=== PATIENT | male | born 1990 | race Caucasian/White ===

== ENCOUNTER 2018-12-23 10:47 | Emergency (ER) | payer BC ==
[2018-12-23 11:01] VITALS: BP 119/83
--- NOTE | 2018-12-23 11:28 | EDM.PDOC ---
ED HPI GENERAL MEDICAL PROBLEM - General Chief Complaint: Cardiovascular Problem Stated Complaint: BLOOD CLOT Time Seen by Provider: 12/23/18 11:10 Source of Information: Reports: Patient, Old Records ([facility] records, 2018), RN Notes Reviewed, Significant Other (Fiance) History Limitations: Reports: No Limitations - History of Present Illness INITIAL COMMENTS - FREE TEXT/NARRATIVE: The patient reports, and records faxed from the [place] walk-in clinic confirm, that the patient was seen this past 12/21/2018, for left leg pain that developed 12/17/2018. The patient denies any trauma to the left lower extremity, and denies at this time that he had been on any long road trips or airline flights. Workup in the walk-in clinic included a CBC, CMP, and a Doppler ultrasound of his left lower extremity, which demonstrated a single occluded left peroneal vein in the calf, but no other abnormalities. A coagulopathy workup was obtained, and the patient was then started on Xarelto, which he states he has been taking as prescribed. No prior history of a DVT. The patient now presents, stating that he continues to have swelling and pain to his left leg. The swelling involves the entire leg below the knee, and the pain is felt primarily to the distal posterior calf. No recent fever. In addition to Xarelto, the patient reports that he has been taking over-the- counter Tylenol, but no other medicines for any other reasons. The patient reported to the triage nurse that he felt short of breath and dizzy when he stood last night, although feels fine today. The patient does not have a PCP. He reports that he was not given follow-up information from the [facility]. Left Leg Pain Score (Numeric/FACES): 10 - Related Data Allergies Allergy/AdvReac Type Severity Reaction Status Date / Time No Known Allergies Allergy Verified 03/11/15 22:52 Home Meds: Home Meds Rivaroxaban [Xarelto] 15 mg PO BID 12/23/18 [History] traMADol [Ultram] 1 tab PO Q6H PRN #14 tablet 12/23/18 [Rx] Past Medical History HEENT History: Reports: Allergic Rhinitis Cardiovascular History: Reports: Blood Clots/VTE/DVT (left peroneal vein, dx'd ) Musculoskeletal History: Reports: Other (See Below) (Bilateral plantar fasciitis ) Endocrine/Metabolic History: Reports: Obesity/BMI 30+ Hematologic History: Reports: Anticoagulation Therapy (Xarelto) - Past Surgical History HEENT Surgical History: Reports: Myringotomy w Tube(s) (bilateral), Tonsillectomy Social & Family History - Family History Cardiac: Reports: Blood Clots/VTE/DVT - Tobacco Use Smoking Status *Q: Former Smoker Years of Tobacco use: 2 Packs/Tins Daily: 0.1 Month/Year Tobacco Last Used: Quit 2011 Second Hand Smoke Exposure: No - Caffeine Use Caffeine Use: Reports: None - Alcohol Use Alcohol Use History: Yes Alcohol Use Frequency: Socially - Recreational Drug Use Recreational Drug Use: Yes Drug Use in Last 12 Months: No Recreational Drug Type: Reports: Cocaine (last used 2010), Marijuana/Hashish ( last smoked 2010) - Living Situation & Occupation Living situation: Reports: Single, with Significant Other (Fiance), with Family (2 sons) 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 ED EXAM, GENERAL - Physical Exam Exam: See Below Exam Limited By: No Limitations General Appearance: Alert, WD/WN, No Apparent Distress Extremities: Other (1-2 + pretibial edema of the left leg, with only 1+ pretibial edema of the right leg. No other visible abnormality to the left leg, such as erythema, ecchymosis, or abrasion. Minimal, if any, tenderness to the dorsal left leg. Neurovascular status of the left lower extremity is intact.) Course - Vital Signs Last Recorded V/S: Last Vital Signs Temp 36.6 C 12/23/18 10:57 Pulse 108 H 12/23/18 10:57 Resp 18 12/23/18 10:57 BP 119/83 12/23/18 10:57 Pulse Ox 96 12/23/18 10:57 Orthostatic Blood Pressure [ 112/82 Standing] Orthostatic Blood Pressure [ 119/70 Supine] - Orders/Labs/Meds Orders: Active Orders 24 hr Category Date Time Status Orthostatic Vital Signs [RC] STAT Care 12/23/18 11:17 Active Meds: Medications Discontinued Medications Generic Name Dose Route Start Last Admin Trade Name Freq PRN Reason Stop Dose Admin Ibuprofen 600 mg 12/23/18 11:49 12/23/18 11:55 Motrin PO 12/23/18 11:50 600 mg ONETIME ONE Administration Tramadol HCl 100 mg 12/23/18 11:49 12/23/18 11:54 Ultram PO 12/23/18 11:50 100 mg ONETIME ONE Administration - Re-Assessments/Exams Free Text/Narrative Re-Assessment/Exam: 12/23/18 11:25 The patient is not orthostatic. 12/23/18 11:51 The patient appears to be having an inordinate amount of discomfort in his posterior left leg, related to a DVT that was diagnosed on 12/21/2018. I don't see any sign of an infection, however. He does not have a fever, and did not have an elevated WBC count or altered electrolytes on his CBC and CMP obtained . For today's purposes, I will treat the patient with tramadol and ibuprofen. I will give him a prescription for tramadol. The combination of ibuprofen and Xarelto is not recommended long-term, but a few days, until his pain subsides, should be okay. The patient may ambulate, but I am recommending that he elevate his left lower extremity and apply a heating pad when he is not ambulating. I will write a note for his work. A coagulopathy workup was ordered on 12/21/2018, however, the patient does not currently have an appointment to follow-up. I believe is important that he does so, and will recommend that he follow up with a provider at the [facility]. I do not see an indication to evaluate for a PE today, because: 1. [id number] DVTs are unlikely to embolize, and 2. Even if we discover that the patient has a PE, he is already on Xarelto, therefore his management would not change. Departure - Departure Time of Disposition: 11:54 Disposition: Home, Self-Care 01 Condition: Good Clinical Impression: Left leg pain, Deep venous thrombosis (DVT) of left peroneal vein - Discharge Information *PRESCRIPTION DRUG MONITORING PROGRAM REVIEWED*: Not Applicable *COPY OF PRESCRIPTION DRUG MONITORING REPORT IN PATIENT STEVO: Not Applicable Prescriptions: traMADol [Ultram] 1 tab PO Q6H PRN #14 tablet PRN Reason: Pain (Severe 7-10) Instructions: Deep Vein Thrombosis Referrals: PCP,None [Primary Care Provider] - Forms: ED Department Discharge, ED Return to Work/School Form Additional Instructions: You were seen in the emergency room for continued left leg pain, associated with a DVT. On examination, there is mild swelling, as would be expected with a DVT, but no other abnormalities. You do not have a fever, and you did not have an elevated WBC count or abnormal electrolytes on your blood work from 12/21/2018. The cause of your pain is unclear. You may walk using your left leg, but you should elevate your left leg and use a heating pad as much as possible when not walking. Continue to take the blood thinner Xarelto as previously prescribed. The combination of Xarelto and ibuprofen is not good for the long-term, but should be safe for a few days. We recommend that you take [id number] ibuprofen, 3 tablets (600 mg) every 8 hours, with food, as needed for discomfort. You have been started on the opioid pain reliever tramadol. A prescription for tramadol has been given to you. You may take one tablet up to every 6 hours as needed for pain not relieved by ibuprofen. Do not drive or operate heavy machinery for 10 hours after taking tramadol. Tramadol may cause constipation, so consider taking a stool softener. A note to excuse you from work through 12/26/2018, has been provided. A coagulopathy workup was ordered when you were seen in the walk-in clinic on 12/21/2018. You need to follow-up in this regard. Please make arrangements to follow-up with one of the providers at the [facility] this week. If any other problems, please do not hesitate to return to the ER. - My Orders Last 24 Hours: My Active Orders 12/23/18 11:17 Orthostatic Vital Signs [RC] STAT - Assessment/Plan Last 24 Hours: My Active Orders 12/23/18 11:17 Orthostatic Vital Signs [RC] STAT
[2018-12-23] MEDS ORDERED: Ibuprofen 600 MG Tab PO ONE (11:49)
[2018-12-23] MEDS ORDERED: traMADol 50 MG Tab PO ONE (11:49)
== END 2018-12-23 12:10 | disposition home or self-care (01) ==
LOC: JD.ED 10:47
DX: I82.4Z2 Acute embolism and thrombosis of unspecified deep veins of left distal lower extremity (principal); Z79.01 Long term (current) use of anticoagulants; Z87.891 Personal history of nicotine dependence
CPT/HCPCS: 99283; A9270

== ENCOUNTER 2020-10-17 19:15 | Emergency (ER) | payer BC, OTHER ==
[2020-10-17 19:23] VITALS: BP 130/84; PULSE 66
--- NOTE | 2020-10-17 19:39 | EDM.PDOC ---
ED HPI GENERAL MEDICAL PROBLEM - General Chief Complaint: Upper Extremity Injury/Pain Stated Complaint: LEFT FOREARM PAIN Time Seen by Provider: 10/17/20 19:22 Source of Information: Reports: Patient History Limitations: Reports: No Limitations - History of Present Illness INITIAL COMMENTS - FREE TEXT/NARRATIVE: This is a 30-year-old male. Today he was cleaning out the garage to get ready for the winter and he was having to pepper picker some 2 by fours and 4 x 4's and he noted as he was picking up 1 of these pieces of wood he had sudden sharp pain in his left wrist that seem to go into his forearm. It did not go up into his shoulder or into his neck. As of this sharp pain especially with movement he comes to the ER for evaluation. The patient states he has not fallen down and there is no other mechanism of injury. He denies any other acute symptoms. He has had no recent cold or cough no nausea vomiting or diarrhea. Left Arm Pain Score (Numeric/FACES): 4 - Related Data Allergies Allergy/AdvReac Type Severity Reaction Status Date / Time Penicillins Allergy Cannot Verified 10/17/20 19:23 Remember Home Meds: Home Meds Cetirizine [ZyrTEC] 10 mg PO DAILY 10/17/20 [History] Past Medical History HEENT History: Reports: Allergic Rhinitis Cardiovascular History: Reports: Blood Clots/VTE/DVT Musculoskeletal History: Reports: Other (See Below) Endocrine/Metabolic History: Reports: Obesity/BMI 30+ Hematologic History: Reports: Anticoagulation Therapy - Past Surgical History HEENT Surgical History: Reports: Myringotomy w Tube(s), Tonsillectomy Social & Family History - Family History Cardiac: Reports: Blood Clots/VTE/DVT - Tobacco Use Tobacco Use Status *Q: Former Tobacco User Used Tobacco, but Quit: Yes Month/Year Tobacco Last Used: 7 years ago - Caffeine Use Caffeine Use: Reports: None - Recreational Drug Use Recreational Drug Use: No - Living Situation & Occupation Living situation: Reports: Single, with Significant Other (Fiance), with Family (2 sons) 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) Review of Systems - Review of Systems Review Of Systems: See Below Constitutional: Denies: Chills, Fever Eyes: Reports: No Symptoms Ears: Reports: No Symptoms Nose: Reports: No Symptoms Mouth/Throat: Reports: No Symptoms Respiratory: Denies: Shortness of Breath, Cough Cardiovascular: Reports: No Symptoms GI/Abdominal: Denies: Abdominal Pain, Nausea, Vomiting Genitourinary: Reports: No Symptoms Musculoskeletal: Reports: Other (As per HPI) Skin: Reports: No Symptoms Neurological: Reports: No Symptoms ED EXAM, GENERAL - Physical Exam Exam: See Below Exam Limited By: No Limitations General Appearance: Alert, WD/WN, No Apparent Distress Eye Exam: Bilateral Eye: Normal Inspection Ears: Normal External Exam Throat/Mouth: Normal Voice, No Airway Compromise Head: Normocephalic Neck: Supple Respiratory/Chest: No Respiratory Distress, Lungs Clear, Normal Breath Sounds Cardiovascular: Regular Rate, Rhythm, No Murmur Back Exam: Full Range of Motion Extremities: Other (Examination of his left wrist reveals tenderness in the snuffbox but no swelling, with flexion and extension of the wrist he has pain in that area and also pain in the extensor muscle group when he stretches it and tries to use it with flexion and extension of his wrist. Neurovascular is prema ssly intact in all 5 digits. He is able to make a fist and extend his fingers with no difficulty. He has no significant elbow shoulder or neck pain noted. The right upper extremity is atraumatic.) Neurological: Alert, Oriented Psychiatric: Normal Affect, Normal Mood Skin Exam: Warm, Dry Course - Vital Signs Last Recorded V/S: Last Vital Signs Temp 97.6 F 10/17/20 19:21 Pulse 66 10/17/20 19:21 Resp 16 10/17/20 19:21 BP 130/84 10/17/20 19:21 Pulse Ox 99 10/17/20 19:21 - Orders/Labs/Meds Orders: Active Orders 24 hr Category Date Time Status Wrist Comp Min 3V Lt [CR] Stat Exams 10/17/20 19:35 Taken DME for Discharge [COMM] Stat Oth 10/17/20 19:55 Ordered - Radiology Interpretation Free Text/Narrative:: X-ray of the left wrist did not show any acute bone abnormalities or fractures. - Re-Assessments/Exams Free Text/Narrative Re-Assessment/Exam: 10/17/20 19:59 Spoke to the patient regarding the x-ray results and they are negative for any bone problems. He does have a left wrist sprain and a mild left forearm sprain as well. We will place him in a splint that he is to wear when he is doing heavy work to remind himself not to hurt his wrist but he does not need to wear it at nighttime when he sleeping or if he is just relaxing and doing nothing heavy. Departure - Departure Time of Disposition: 19:59 Disposition: Home, Self-Care 01 Condition: Good Clinical Impression: Left wrist sprain Qualifiers: Encounter type: initial encounter Qualified Code(s): S63.502A - Unspecified sprain of left wrist, initial encounter Sprain of left forearm Qualifiers: Encounter type: initial encounter Qualified Code(s): S63.502A - Unspecified sprain of left wrist, initial encounter - Discharge Information *PRESCRIPTION DRUG MONITORING PROGRAM REVIEWED*: Not Applicable *COPY OF PRESCRIPTION DRUG MONITORING REPORT IN PATIENT STEVO: Not Applicable Instructions: Wrist Sprain, Adult Referrals: Davin Chirinos Jr, MD [Primary Care Provider] - Forms: ED Department Discharge Additional Instructions: Wear the left wrist splint when you are doing any sort of heavy work to remind yourself not to keep injuring this wrist, you may take the splint off if you are resting or if you are sleeping. You may use ice to the area on and off for the next 48 hours to help with the soreness in the wrist and the forearm, take Tylenol or ibuprofen as needed for the soreness, follow-up with your family doctor end of the week for recheck or return to the ER if needed Sepsis Event Note (ED) - Evaluation Sepsis Screening Result: No Definite Risk - Focused Exam Vital Signs: Vital Signs Temp Pulse Resp BP Pulse Ox 10/17/20 19:21 97.6 F 66 16 130/84 99 - My Orders Last 24 Hours: My Active Orders 10/17/20 19:35 Wrist Comp Min 3V Lt [CR] Stat 10/17/20 19:55 DME for Discharge [COMM] Stat - Assessment/Plan Last 24 Hours: My Active Orders 10/17/20 19:35 Wrist Comp Min 3V Lt [CR] Stat 10/17/20 19:55 DME for Discharge [COMM] Stat
--- NOTE | 2020-10-18 07:33 | CR ---
Left wrist: 3 views of the left wrist were obtained. Comparison: No prior wrist study is available. Findings: Osseous: Joint spaces are maintained. No acute fracture, dislocation or other bony abnormality is seen. Soft tissues: No abnormal soft tissue calcifications are seen. Impression: 1. Nothing acute is seen on 3 view left wrist exam. Diagnostic code #1 I agree with preliminary report from [facility], finalized on 10/17/20, 9:02 PM Central Daylight Time
== END 2020-10-17 20:05 | disposition home or self-care (01) ==
LOC: JD.ED 19:15
DX: S63.502A Unspecified sprain of left wrist, initial encounter (principal); S59.812A Other specified injuries left forearm, initial encounter; E66.9 Obesity, unspecified; Z68.35 Body mass index [BMI] 35.0-35.9, adult; Z87.891 Personal history of nicotine dependence; Z88.0 Allergy status to penicillin; Z79.01 Long term (current) use of anticoagulants; X58.XXXA Exposure to other specified factors, initial encounter; Y92.59 Other trade areas as the place of occurrence of the external cause
CPT/HCPCS: 73110-26-LT; 73110-LT; 99282; 99283-25

== ENCOUNTER 2021-05-17 21:33 | Emergency (ER) | payer OTHER ==
[2021-05-17 21:49] VITALS: BP 128/86; PULSE 80
--- NOTE | 2021-05-17 22:21 | EDM.PDOC ---
<Almita Ramirez M - Last Filed: 05/17/21 22:55> ED HPI GENERAL MEDICAL PROBLEM - General Chief Complaint: Lower Extremity Injury/Pain Stated Complaint: KNEE PAIN Time Seen by Provider: 05/17/21 21:51 Source of Information: Reports: Patient History Limitations: Reports: No Limitations - History of Present Illness INITIAL COMMENTS - FREE TEXT/NARRATIVE: 31-year-old male presents the emergency department with complaints of left knee pain. He states that he was sitting around watching TV when he developed severe left knee pain. He also noted increased heat and swelling to the left knee. This occurred around 2 hours ago. States that the pain is primarily along the left side of the kneecap radiating around the lateral side to the top of the kneecap. He denies any recent fever or chills. He denies any recent injury or overuse. Of note, patient states that he does have a history of blood clot in the past and he was treated for this however it he currently does not take any anticoagulants. Patient states that his mother has a clotting disorder but he has never been tested for any. He states he took ibuprofen approximately 2 hours ago when the pain started however this has not helped. Treatments ENDBANDER: Reports: Other (see below) Other Treatments ENDBANDER: none Left Knee Pain Score (Numeric/FACES): 7 - Related Data Allergies Allergy/AdvReac Type Severity Reaction Status Date / Time Penicillins Allergy Severe Cannot Verified 05/17/21 21:44 Remember Home Meds: Home Meds . [No Known Home Meds] 05/17/21 [History] Past Medical History HEENT History: Reports: Allergic Rhinitis Cardiovascular History: Reports: Blood Clots/VTE/DVT Musculoskeletal History: Reports: Other (See Below) Endocrine/Metabolic History: Reports: Obesity/BMI 30+ Hematologic History: Reports: Anticoagulation Therapy - Past Surgical History HEENT Surgical History: Reports: Myringotomy w Tube(s), Tonsillectomy Social & Family History - Family History Cardiac: Reports: Blood Clots/VTE/DVT - Tobacco Use Tobacco Use Status *Q: Current Every Day Tobacco User Years of Tobacco use: 9 Packs/Tins Daily: 1 - Caffeine Use Caffeine Use: Reports: Soda - Recreational Drug Use Recreational Drug Use: No - Living Situation & Occupation Living situation: Reports: Single, with Significant Other (Fiance), with Family (2 sons) 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 ED EXAM, GENERAL - Physical Exam Exam: See Below Exam Limited By: No Limitations General Appearance: Alert, WD/WN, No Apparent Distress Ears: Normal External Exam, Hearing Grossly Normal Nose: Normal Inspection Throat/Mouth: Normal Inspection, Normal Lips, Normal Voice, No Airway Compromise Head: Atraumatic, Normocephalic Neck: Normal Inspection, Supple Respiratory/Chest: No Respiratory Distress, No Accessory Muscle Use Cardiovascular: Normal Peripheral Pulses, Regular Rate, Rhythm, No Murmur GI/Abdominal: No Distention (Male) Exam: Deferred Rectal (Males) Exam: Deferred Back Exam: Normal Inspection, Full Range of Motion Extremities: Normal Inspection, Normal Range of Motion, Normal Capillary Refill. No: Non-Tender (Tenderness noted to left knee or along the left lateral border of patella) Neurological: Alert, Oriented, Normal Cognition Psychiatric: Normal Affect, Normal Mood Skin Exam: Dry, Intact, Normal Color, No Rash. No: Warm (Left knee is hot to touch) Lymphatic: No Adenopathy Course - Vital Signs Text/Narrative:: Patient presents with abrupt onset left knee pain, heat and swelling. Upon assessment, I do not see any swelling compared to his right knee. His left knee however is hot to touch compared to the right knee. There is no redness noted anywhere on the left knee. With palpation, there is no definite effusion noted. Patient does have pain when palpated along the left lateral lower edge of the kneecap. Patient is worried he may have another blood clot as he states this feels identical to his previous diagnosis of having a blood clot. He states that at that time it was diagnosed on the anterior portion of his lower leg. He denies any past medical history. I have ordered an ultrasound of the left leg. I have also ordered labs to include CBC, CMP, CRP, ESR, uric acid and rheumatoid factor. - Re-Assessments/Exams Free Text/Narrative Re-Assessment/Exam: 05/17/21 22:55 I have turned over care to Dr. Giraldo Departure - Departure Disposition: Home, Self-Care 01 Clinical Impression: Patellar bursitis of left knee - Discharge Information Instructions: Prepatellar Bursitis, Bursitis Referrals: PCP,None [Primary Care Provider] - Forms: ED Department Discharge Additional Instructions: [place] as needed. Ibuprofen with meals. Follow-up with PCP or Ortho if not improving. Return to ER if worse. Retches as needed. Sepsis Event Note (ED) - Evaluation Sepsis Screening Result: No Definite Risk <Jenelle Giraldo - Last Filed: 05/17/21 23:58> Course - Vital Signs Text/Narrative:: Patient's ultrasound of his left lower extremity shows no DVT. His arthritic panel is negative. With my examination of the patient I believe he has some bursitis. I am recommending he take anti-inflammatory such as ibuprofen I will give him a prescription for some [place] and he can go back to using crutches as long as he is having pain with walking. If his symptoms were to worsen he may return to the ER at any time and most likely then we would attempt to tap the knee. He may follow-up with his PCP this week for recheck. Last Recorded V/S: Last Vital Signs Temp 98.7 F 05/17/21 21:47 Pulse 80 05/17/21 21:47 Resp 20 05/17/21 21:47 BP 128/86 05/17/21 21:47 Pulse Ox 95 05/17/21 21:47 - Orders/Labs/Meds Orders: Active Orders 24 hr Category Date Time Status VL Duplex Lwr Ext Veins Ltd Lt [US] Stat Exams 05/17/21 21:59 Taken Labs: Laboratory Tests 05/17/21 05/17/21 05/17/21 Range/Units 22:16 22:16 22:16 WBC 10.33 H (4.23-9.07) K/mm3 RBC 4.99 (4.63-6.08) M/mm3 Hgb 14.4 (13.7-17.5) gm/dl Hct 42.8 (40.1-51.0) % MCV 85.8 (79.0-92.2) fl MCH 28.9 (25.7-32.2) pg MCHC 33.6 (32.2-35.5) g/dl RDW Std Deviation 45.9 H (35.1-43.9) fL Plt Count 306 (163-337) K/mm3 MPV 10.1 (9.4-12.3) fl ESR 2 (0-15) mm/hr Sodium 143 (136-145) mEq/L Potassium 4.2 (3.5-5.1) mEq/L Chloride 109 H (98-107) mEq/L Carbon Dioxide 22 (21-32) mEq/L Anion Gap 16.2 H (5-15) BUN 15 (7-18) mg/dL Creatinine 1.1 (0.7-1.3) mg/dL Est Cr Clr Drug Dosing 108.76 mL/min Estimated GFR (MDRD) > 60 (>60) mL/min BUN/Creatinine Ratio 13.6 L (14-18) Glucose 118 H (70-99) mg/dL Uric Acid 6.6 (3.5-7.2) mg/dL Calcium 8.3 L (8.5-10.1) mg/dL Total Bilirubin 0.2 (0.2-1.0) mg/dL AST 15 (15-37) U/L ALT 31 (16-63) U/L Alkaline Phosphatase 43 L (46-116) U/L C-Reactive Protein 0.4 (<1.0) mg/dL Total Protein 6.6 (6.4-8.2) g/dl Albumin 3.5 (3.4-5.0) g/dl Globulin 3.1 gm/dL Albumin/Globulin Ratio 1.1 (1-2) Rheumatoid Factor Scrn (NEGATIVE) 05/17/21 Range/Units 22:16 WBC (4.23-9.07) K/mm3 RBC (4.63-6.08) M/mm3 Hgb (13.7-17.5) gm/dl Hct (40.1-51.0) % MCV (79.0-92.2) fl MCH (25.7-32.2) pg MCHC (32.2-35.5) g/dl RDW Std Deviation (35.1-43.9) fL Plt Count (163-337) K/mm3 MPV (9.4-12.3) fl ESR (0-15) mm/hr Sodium (136-145) mEq/L Potassium (3.5-5.1) mEq/L Chloride (98-107) mEq/L Carbon Dioxide (21-32) mEq/L Anion Gap (5-15) BUN (7-18) mg/dL Creatinine (0.7-1.3) mg/dL Est Cr Clr Drug Dosing mL/min Estimated GFR (MDRD) (>60) mL/min BUN/Creatinine Ratio (14-18) Glucose (70-99) mg/dL Uric Acid (3.5-7.2) mg/dL Calcium (8.5-10.1) mg/dL Total Bilirubin (0.2-1.0) mg/dL AST (15-37) U/L ALT (16-63) U/L Alkaline Phosphatase (46-116) U/L C-Reactive Protein (<1.0) mg/dL Total Protein (6.4-8.2) g/dl Albumin (3.4-5.0) g/dl Globulin gm/dL Albumin/Globulin Ratio (1-2) Rheumatoid Factor Scrn Negative (NEGATIVE) Departure - Departure Time of Disposition: 23:57 Condition: Good Sepsis Event Note (ED) - Focused Exam Vital Signs: Vital Signs Temp Pulse Resp BP Pulse Ox 05/17/21 21:47 98.7 F 80 20 128/86 95
--- NOTE | 2021-05-18 09:07 | US ---
Left lower extremity deep venous ultrasound: Duplex and color Doppler evaluation was obtained of the left common femoral, proximal greater saphenous, superficial femoral, popliteal, posterior tibial and peroneal veins. Right common femoral vein was also evaluated. Comparison: No prior venous imaging is available. Findings: Visualized veins show normal phasic flow, augmentation and compression. Lymph nodes are seen within the left inguinal region which are felt to be within normal limits. Impression: 1. No findings of deep venous thrombosis are seen within the left lower extremity or within the right common femoral vein. Diagnostic code #1 I agree with preliminary report from [facility], finalized on 05/18/21, 12:05 AM CDT, code 1
== END 2021-05-18 00:10 | disposition home or self-care (01) ==
LOC: JD.ED 21:33
DX: M70.42 Prepatellar bursitis, left knee (principal); E66.9 Obesity, unspecified; Z68.34 Body mass index [BMI] 34.0-34.9, adult; Z72.0 Tobacco use; Z88.0 Allergy status to penicillin; Z79.01 Long term (current) use of anticoagulants
CPT/HCPCS: 36415; 80053; 84550; 85027; 85652; 86140; 86430; 93971-26-LT; 93971-LT; 99283; 99284-25

== ENCOUNTER 2021-05-26 19:20 | Emergency (ER) | payer OTHER ==
[2021-05-26 19:29] VITALS: BP 132/82; PULSE 83
--- NOTE | 2021-05-26 20:18 | EDM.PDOC ---
ED HPI GENERAL MEDICAL PROBLEM - General Chief Complaint: Skin Complaint Stated Complaint: PAIN LEFT KNEE Time Seen by Provider: 05/26/21 19:34 Source of Information: Reports: Patient, Significant Other (Fianc) History Limitations: Reports: No Limitations - History of Present Illness INITIAL COMMENTS - FREE TEXT/NARRATIVE: Mr. Conti is a very pleasant 31-year-old gentleman who now presents the ED with a painful, erythematous, and swollen left knee. He states that he initially developed sudden-onset pain to the lateral aspect of the knee without erythema on 05/17/2021. He was seen in this ED that same day, where a work-up included a CBC, CMP, CRP, ESR, uric acid level, rheumatoid factor, and a Doppler ultrasound of the left lower extremity. His WBC count was 10.33, his CRP 0.4, his ESR 2, his uric acid level 6, with an unremarkable CMP and negative rheumatoid factor. His Doppler ultrasound was negative for a DVT. He was diagnosed with bursitis and discharged home with a prescription for Zamora, to be taken along with OTC ibuprofen, and crutches. The patient states that he followed up at the walk-in clinic on 05/19/2021. A CBC found his WBC up to be 12.5. He was prescribed a 7-day course of Keflex, that he states he took as prescribed. Since then, the patient states that he has been icing his left knee and elevating it, although he acknowledges that he returned to work recently. He returned to the walk-in clinic today due to erythema that had extended from his knee to his thigh. He states that no tests were done. He was sent here in order to undergo arthrocentesis of the left knee and start IV antibiotics. The patient denies suffering any injury to his knee. He has not had a fever throughout this course. No similar symptoms prior to 05/19/2021. Here in the ED tonight, the patient is found to be hemodynamically stable, afebrile, saturating 98% on room air. He appears to be comfortable, in no acute distress. Prior to 05/19/2021, the patient denies having a recent fever, chills, sore throat, ear pain, nasal or sinus congestion, cough, dyspnea, chest pain, palpitations, nausea, vomiting, constipation, diarrhea, abdominal pain, urinary symptoms, recent weight gain or weight loss, recent bloody bowel movements or black bowel movements, recent joint aches, headaches, or rashes. The patient does not have a PCP. Left Knee Pain Score (Numeric/FACES): 6 - Related Data Allergies Allergy/AdvReac Type Severity Reaction Status Date / Time Penicillins Allergy Severe Rash Verified 05/26/21 19:29 Home Meds: Home Meds Albuterol Sulfate [Albuterol Sulfate HFA] 2 inh INH Q4H PRN 05/26/21 [History] Aspirin/Acetaminophen/Caffeine [Excedrin Migraine Caplet] 1 tab PO DAILY PRN 05/26/21 [History] Cetirizine [ZyrTEC] 10 mg PO DAILY 05/26/21 [History] Ibuprofen 200 mg PO Q4H PRN 05/26/21 [History] cephALEXin [Keflex] 1 cap PO Q6H #55 cap 05/26/21 [Rx] Past Medical History HEENT History: Reports: Allergic Rhinitis Cardiovascular History: Reports: Blood Clots/VTE/DVT (LLE DVT 12/21/2018) Endocrine/Metabolic History: Reports: Obesity/BMI 30+ - Past Surgical History HEENT Surgical History: Reports: Myringotomy w Tube(s) (bilateral), Tonsillectomy Social & Family History - Tobacco Use Tobacco Use Status *Q: Former Tobacco User Years of Tobacco use: 2 Packs/Tins Daily: 0.1 Month/Year Tobacco Last Used: Quit 2011 - Caffeine Use Caffeine Use: Reports: Soda - Alcohol Use Alcohol Use History: Yes Alcohol Use Frequency: Socially - Recreational Drug Use Recreational Drug Use: Yes Drug Use in Last 12 Months: No Recreational Drug Type: Reports: Cocaine (last 2010), Marijuana/Hashish (last 2010) - Living Situation & Occupation Living situation: Reports: Single, with Significant Other (Fiance), with Family (2 sons) 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 ED EXAM, SKIN/RASH Exam: See Below Exam Limited By: No Limitations General Appearance: Alert, WD/WN, No Apparent Distress Extremities: Other (The patient's left knee is moderately swollen, when compared to the right, however, it is not clear that there is an effusion present. There is erythema, primarily to the anterior and lateral aspect of the right knee, although there is also a patch to the distal medial thigh. The erythematous area) Course - Vital Signs Last Recorded V/S: Last Vital Signs Temp 36.3 C 05/26/21 19:26 Pulse 83 05/26/21 19:26 Resp 16 05/26/21 19:26 BP 132/82 05/26/21 19:26 Pulse Ox 98 05/26/21 19:26 - Orders/Labs/Meds Labs: Laboratory Tests 05/26/21 05/26/21 05/26/21 Range/Units 20:10 20:10 21:25 WBC 8.22 (4.23-9.07) K/mm3 RBC 4.84 (4.63-6.08) M/mm3 Hgb 13.7 (13.7-17.5) gm/dl Hct 41.2 (40.1-51.0) % MCV 85.1 (79.0-92.2) fl MCH 28.3 (25.7-32.2) pg MCHC 33.3 (32.2-35.5) g/dl RDW Std Deviation 43.7 (35.1-43.9) fL Plt Count 383 H D (163-337) K/mm3 MPV 9.5 (9.4-12.3) fl Neutrophils % (Manual) 62 H (40-60) % Band Neutrophils % 0 (0-10) % Lymphocytes % (Manual) 26 (20-40) % Atypical Lymphs % 0 % Monocytes % (Manual) 9 (2-10) % Eosinophils % (Manual) 3 (0.8-7.0) % Basophils % (Manual) 0 L (0.2-1.2) Platelet Estimate Adequate RBC Morph Comment Normal C-Reactive Protein 3.9 H* (<1.0) mg/dL MRSA (PCR) Negative Meds: Medications Discontinued Medications Generic Name Dose Route Start Last Admin Trade Name Freq PRN Reason Stop Dose Admin Bupivacaine HCl 10 ml 05/26/21 20:27 05/26/21 20:51 Bupivacaine 0.5% 10 Ml Sdv INJECT 05/26/21 20:28 10 ml ONETIME ONE Administration Cephalexin 500 mg 05/26/21 23:37 05/26/21 23:51 Cephalexin 500 Mg Cap PO 05/26/21 23:38 500 mg ONETIME STA Administration Lidocaine/Epinephrine 20 ml 05/26/21 20:27 05/26/21 20:54 Lidocaine 1% With Epinephrine 1:100,000 20 Ml Mdv INJECT 05/26/21 20:28 Not Given ONETIME ONE Lidocaine/Epinephrine Confirm 05/26/21 20:42 05/26/21 20:50 Lidocaine 1% With Epinephrine 1:100,000 10 Ml Mdv Administered 05/26/21 20:43 10 ml Dose Administration 20 ml .ROUTE .[facility] ONE - Re-Assessments/Exams Free Text/Narrative Re-Assessment/Exam: 05/26/21 20:12 As above, the patient developed pain to the lateral aspect of his left knee on 05/17/2021, a workup in the ED at that time was unremarkable, he was diagnosed with bursitis, discharged home with a prescription for Zamora, along with [id number] ibuprofen and crutches. He was seen at the walk-in clinic on 05/19/2021, his WBC count was noted to be slightly higher than on 05/17/2021. He was prescribed a 7-day course of Keflex, which he took, along with icing and elevating his left knee. He returned to the [facility] today, and was sent here for left knee aspiration and IV antibiotics. At no time if the patient had a fever or other systemic symptoms. On examination, the erythematous areas, found primarily to the anterior and lateral aspect of his knee, are warm to touch. He is able to flex the knee to about 90 degrees, after which it is too painful. I have ordered a CBC and CMP. I discussed the case with Dr. Thornton, who is not on- call, but agreed to discuss the case with me anyway. He recommended that I aspirate the patient's left knee, after which he can be started on oral Keflex and follow-up in 2 weeks. 05/26/21 20:58 The patient's CBC is unremarkable. His CRP is elevated at 3.9. The patient's left knee was sterilized using Betadine, after which sterile drapes were placed. Local anesthesia of a 50-50 admixture of lidocaine 1% with epinephrine and bupivacaine 0.5% without epinephrine was injected inferomedial to the patella. An 18-gauge needle was then inserted into the joint, however, no fluid was recovered with aspiration. The needle was removed, and a Band-Aid placed over the injection site. The patient tolerated the procedure well. Case again discussed with Dr. Thornton, who recommended that we continue with Keflex, as above. In order to make sure that the patient is not colonized with MRSA, I have ordered an MRSA screen by PCR. 05/26/21 23:36 The patient's MRSA screen by PCR has returned negative. I will therefore start him on oral Keflex, and discharge him home with a prescription to complete a 2- week course. I will have him follow-up with Dr. Thornton at the next available appointment. Departure - Departure Time of Disposition: 23:39 Disposition: Home, Self-Care 01 Condition: Good Clinical Impression: Bacterial skin infection of leg - Discharge Information *PRESCRIPTION DRUG MONITORING PROGRAM REVIEWED*: Not Applicable *COPY OF PRESCRIPTION DRUG MONITORING REPORT IN PATIENT STEVO: Not Applicable Prescriptions: cephALEXin [Keflex] 1 cap PO Q6H #55 cap Instructions: Cellulitis, Adult Referrals: Jules Thornton MD [Physician] - Forms: ED Department Discharge Additional Instructions: You were seen in the emergency room for persistent redness, swelling, and pain to your left knee. Work-up in the ER included some blood tests and an MRSA screen by PCR. Your white blood cell count was not elevated, and your MRSA screen was negative. Your case was discussed with the Orthopedic Surgeon Dr. Jules Thornton, who recommended that we attempt to aspirate your left knee. Your aspiration yielded no joint fluid. Based on your history, physical exam, ER tests, and knee aspiration, you are most likely suffering from a skin infection over the knee. You have been started on the antibiotic Keflex, and a prescription for Keflex has been sent to the [facility] located in the [facility] [employer] store. Take 1 tablet of Keflex every 6 hours, as prescribed. Finish the entire prescription unless told otherwise by Dr. Thornton. Please contact the office of Dr. Thornton in order to make an appointment to see him as soon as possible. If any other problems, please do not hesitate to return to the ER. Sepsis Event Note (ED) - Evaluation Sepsis Screening Result: No Definite Risk - Focused Exam Vital Signs: Vital Signs Temp Pulse Resp BP Pulse Ox 05/26/21 19:26 36.3 C 83 16 132/82 98 ED JOINT ASPIRATION PROCEDURE - Joint Apsiration/Arthrocentesis Site: Left knee Skin prep: Providone-Iodine (Betadine) Local anesthesia: Lidocaine: 1% with EPI (50:50 admixture) Local Anesthesia - Bupivicaine (Marcaine): 0.5% Plain (50:50 admixture) Local Anesthetic Volume: 3cc Aspiration needle size: 18g Aspirate appearance: other (No fluid recovered) Dressing: adhesive dressing (Band-Aid) Complications: No
[2021-05-26] MEDS ORDERED: Lidocaine 1% with EPINEPHrine 1:100,000 20 ML MDV INJECT ONE (20:27)
[2021-05-26] MEDS ORDERED: Bupivacaine 0.5% 10 ML SDV INJECT ONE (20:27)
[2021-05-26] MEDS ORDERED: Lidocaine 1% with EPINEPHrine 1:100,000 10 ML MDV ONE (20:42)
[2021-05-26] MEDS ORDERED: Cephalexin 500 MG Cap PO STA ×2 (21:01→23:37)
== END 2021-05-26 23:52 | disposition home or self-care (01) ==
LOC: JD.ED 19:20
DX: L08.9 Local infection of the skin and subcutaneous tissue, unspecified (principal); B96.89 Other specified bacterial agents as the cause of diseases classified elsewhere; Z88.0 Allergy status to penicillin; Z79.82 Long term (current) use of aspirin; Z87.891 Personal history of nicotine dependence
CPT/HCPCS: 20610; 36415; 85007; 85027; 86140; 87641; 99283; A9270; J3490

== ENCOUNTER 2025-09-27 22:14 | Emergency (ER) | payer BC ==
[2025-09-27 22:44] LABS: BASOPHILS ABSOLUTE AUTO 0.0 K/mm3 (0.0-0.2); BASOPHILS PERCENT AUTO 0.2 % (0.0-1.0); EOSINOPHILS ABSOLUTE AUTO 0.2 K/mm3 (0.0-0.4); EOSINOPHILS PERCENT AUTO 2.9 % (0.0-6.0); IMMATURE GRAN ABSOLUTE AUTO 0.02 K/mm3 (0.00-0.05); IMMATURE GRAN PERCENT AUTO 0.3 % (0.0-0.4); LYMPHOCYTES ABSOLUTE AUTO 1.9 K/mm3 (1.0-4.8); LYMPHOCYTES PERCENT AUTO 29.8 % (24.0-44.0); MEAN PLATELET VOLUME 10.1 fl (9.4-12.4); MONOCYTES ABSOLUTE AUTO 0.6 K/mm3 (0.0-0.8); MONOCYTES PERCENT AUTO 9.4 % (0.0-8.0); NEUTROPHILS ABSOLUTE AUTO 3.7 K/mm3 (1.8-7.7); NEUTROPHILS PERCENT AUTO 57.4 % (41.0-71.0); NRBC ABSOLUTE 0.00 (0.00-0.02); NRBC PERCENT 0.0 % (0.0-0.2); PLATELET COUNT,PLT 317 K/mm3 (150-400); RED BLOOD CELL COUNT 5.33 M/mm3 (4.52-5.90); WHITE BLOOD CELL COUNT,WBC 6.47 K/mm3 (3.9-11.3)
[2025-09-27] MEDS: Atropine/Diphenoxylate 0.025-2.5 MG Tab PO ONE (22:44)
[2025-09-27 23:06] LABS: A/G RATIO 1.0 (1-2); ALANINE AMINOTRANSFERASE,ALT 29.0 U/L (16-63); ASPARTATE AMNIOTRANSFERASE,AST 18.0 U/L (15-37); BILIRUBIN TOTAL 0.5 mg/dL (0.2-1.0); BLOOD UREA NITROGEN,BUN 16.0 mg/dL (7-18); CARBON DIOXIDE,CO2 27.0 mEq/L (21-32); CHLORIDE,CL 105.0 mEq/L (98-107); CREATINE KINASE,CK 105.0 U/L (39-308); CREATININE 0.9 mg/dL (0.7-1.3); EST CRCL DRUG DOSING (CG) 128.14 mL/min; ESTIMATED GFR 116.0 mL/min (>60); GLUCOSE RANDOM 88.0 mg/dL (70-99); POTASSIUM,K 3.4 mEq/L (3.5-5.1); PROTEIN TOTAL,TP 7.1 g/dl (6.4-8.2); SODIUM,NA 141.0 mEq/L (136-145)
[2025-09-27 23:18] LABS: ETHANOL BLOOD MEDICAL 0.0 gm% (0.00)
[2025-09-27 23:29] LABS: BUPRENORPHINE SCREEN,URINE NEGATIVE (CUTOFF=10); METHADONE SCREEN, URINE NEGATIVE (CUT0FF=200); METHAMPHETAMINES SCREEN, URINE NEGATIVE (CUTOFF=500); OXYCODONE SCREEN,URINE NEGATIVE (CUT0FF=100); THC SCREEN,URINE 20 NG/ML NEGATIVE (CUTOFF=50)
[2025-09-27 23:32] LABS: AMPHETAMINES SCREEN, URINE PRESUMPTIVE POSITIVE (CUTOFF=500)
[2025-09-27] MEDS: Ondansetron 4 MG/2 ML SDV IV STA (23:34)
[2025-09-27] MEDS ORDERED: Potassium Chloride 20 MEQ Tab.ER PO STA (23:59)
[2025-09-28] MEDS: Potassium Chloride 20 MEQ Tab.ER PO STA (00:16)
[2025-09-28 00:24] VITALS: BP 129/86; PULSE 72
[2025-10-01 18:41] LABS: NOROVIRUS 1 BY PCR Not Detected; NOROVIRUS 2 BY PCR Not Detected
== END 2025-09-28 00:22 | disposition home or self-care (01) ==
LOC: JD.ED 22:14
DX: R19.7 Diarrhea, unspecified (principal); E86.0 Dehydration; E66.9 Obesity, unspecified; Z68.26 Body mass index [BMI] 26.0-26.9, adult; Z88.0 Allergy status to penicillin; Z79.82 Long term (current) use of aspirin; Z79.899 Other long term (current) drug therapy
CPT/HCPCS: 36415; 80053; 80306; 80307; 82550; 83690; 83735; 85025; 87045; 87046; 87798; 87899; 96361; 96374; 96375; 99284; A9270; J2405; J2470; J7030